=== PATIENT | female | born 1960 | race Caucasian/White ===

== ENCOUNTER 2017-09-24 21:56 | Emergency (ER) | payer MEDICAID ==
[~2017-09-24] VITALS: Ht 162.6 cm; Wt 81.6 kg
[2017-09-24 22:41] LABS: Basophils # (auto) 0.1 uL; Basophils % (auto) 1.3 % (0.0-2.0); Eosinophils # (auto) 0.2 uL; Eosinophils % (auto) 4.2 % (0.0-7.0); Hematocrit 30.7 % (36.0-46.0); Hemoglobin 10.1 g/dL (12.2-16.2); Lymphocytes # (auto) 1.4 uL; Lymphocytes % (auto) 25.3 % (10.0-50.0); Mean Corpuscular Hemoglobin 30.2 pg (28.0-32.0); Mean Corpuscular Hgb Conc. 32.9 g/dL (32.0-36.0); Mean Corpuscular Volume 91.6 fL (80.0-100.0); Monocytes # (auto) 0.6 uL; Neutrophils # (auto) 3.2 uL; Neutrophils % (auto) 59.2 % (37.0-80.0); Nucleated Red Blood Cells % 0.1 %; Platelet Count (auto) 313 10^3/uL (140-450); Red Blood Cells 3.36 10^6/uL (4.0-5.20); Red Cell Distribution Width 15.9 % (11.8-14.3); White Blood Cell 5.5 10^3/uL (4.4-10.8)
[2017-09-24 22:57] LABS: BUN/Creatinine Ratio 19.4; Calcium 8.2 mg/dL (8.5-10.1); Potassium 4.5 mmol/L (3.5-5.1)
[2017-09-24 23:00] LABS: Bilirubin, Total 0.1 mg/dL (0.2-1.0); Total Protein 7.8 g/dL (6.4-8.2)
[2017-09-25 01:59] LABS: Alcohol, Urine < 3.0 mg/dL (0-5); Amphetamine Screen, Urine NEGATIVE (NEGATIVE); Barbiturate Scree,Urine NEGATIVE (NEGATIVE); Benzodiazephine Screen, Urine NEGATIVE (NEGATIVE); Cannabinoid Screen, Urine POSITIVE (NEGATIVE); Cocaine Screen, Urine NEGATIVE (NEGATIVE); Opiate Scree,Urine NEGATIVE (NEGATIVE); Phencyclidine Screen, Urine NEGATIVE (NEGATIVE)
[2017-09-25 03:38] VITALS: BP 136/80
== END 2017-09-25 03:39 | disposition home or self-care (01) ==
LOC: EDBD 21:56 → ER 21:56
DX: G20 Parkinson's disease (principal); F12.10 Cannabis abuse, uncomplicated; M19.90 Unspecified osteoarthritis, unspecified site; M32.9 Systemic lupus erythematosus, unspecified; Z90.49 Acquired absence of other specified parts of digestive tract; Z90.710 Acquired absence of both cervix and uterus
CPT/HCPCS: 36415; 70450; 80053; 80307; 83880; 84484; 85025; 93005

== ENCOUNTER 2017-11-28 06:10 | Inpatient (IN) | payer OTHER, MEDICAID ==
[~2017-11-28] VITALS: Ht 162.6 cm; Wt 90.7 kg
[2017-11-28] MEDS ORDERED: LORazepam 2MG/ML-1ML VIAL IV ONE (07:00)
[2017-11-28] MEDS ORDERED: SODIUM CHLORIDE 0.9% 1,000 ML IV ONE ×2 (07:00→11:30)
[2017-11-28] MEDS ORDERED: ONDANSETRON HCL 4 MG/2 ML VIAL IV ONE (07:00)
[2017-11-28 07:16] LABS: INR 0.99 (0.9-1.15); Partial Thromboplastin Time 20.8 sec (23.78-33.04); Prothrombin Time 10.6 sec (9.27-12.13)
[2017-11-28 07:24] LABS: Basophils # (auto) 0 uL; Basophils % (auto) 0.9 % (0.0-2.0); Eosinophils # (auto) 0.2 uL; Eosinophils % (auto) 3.5 % (0.0-7.0); Hematocrit 36.4 % (36.0-46.0); Hemoglobin 11.8 g/dL (12.2-16.2); Lymphocytes # (auto) 1.2 uL; Lymphocytes % (auto) 23.1 % (10.0-50.0); Mean Corpuscular Hgb Conc. 32.4 g/dL (32.0-36.0); Mean Corpuscular Volume 92.8 fL (80.0-100.0); Monocytes # (auto) 0.5 uL; Monocytes % (auto) 10.1 % (0.0-12.0); Neutrophils # (auto) 3.2 uL; Neutrophils % (auto) 62.4 % (37.0-80.0); Nucleated Red Blood Cells % 0.1 %; Platelet Count (auto) 262 10^3/uL (140-450); Red Blood Cells 3.92 10^6/uL (4.0-5.20); Red Cell Distribution Width 18.9 % (11.8-14.3); White Blood Cell 5.1 10^3/uL (4.4-10.8)
[2017-11-28 07:27] LABS: Alanine Aminotransferase 21 U/L (13-56); Albumin 3.3 g/dL (3.4-5.0); Alkaline Phosphatase 122 U/L (45-117); Anion Gap 2 (5-15); Aspartate Aminotransferase 20 U/L (15-37); Bilirubin, Total 0.2 mg/dL (0.2-1.0); Blood Alcohol < 3.0 mg/dL (0-5); Blood Urea Nitrogen 28 mg/dL (7-18); Calcium 8.5 mg/dL (8.5-10.1); Carbon Dioxide 27 mmol/L (21-32); Chloride 112 mmol/L (98-107); GFR African American 74 mL/min; GFR Non-African American 61 mL/min; Glucose 115 mg/dL (74-106); Potassium 4.8 mmol/L (3.5-5.1); Sodium 141 mmol/L (136-145); Total Protein 8.1 g/dL (6.4-8.2)
[2017-11-28 07:45] LABS: Alcohol, Urine < 3.0 mg/dL (0-5); Amphetamine Screen, Urine NEGATIVE (NEGATIVE); Barbiturate Scree,Urine NEGATIVE (NEGATIVE); Benzodiazephine Screen, Urine NEGATIVE (NEGATIVE); Cannabinoid Screen, Urine NEGATIVE (NEGATIVE); Cocaine Screen, Urine NEGATIVE (NEGATIVE); Opiate Scree,Urine NEGATIVE (NEGATIVE); Phencyclidine Screen, Urine NEGATIVE (NEGATIVE); Urine Bacteria NONE SEEN /hpf (None Seen); Urine Blood Negative /uL (Negative); Urine WBC 2 /hpf (0 - 5)
[2017-11-28 08:16] LABS: Salicylate < 1.7 mg/dL (2.8-20.0)
[2017-11-28 08:17] LABS: Acetaminophen < 2.0 ug/mL (10-30)
[2017-11-28] MEDS ORDERED: SODIUM CHLORIDE 0.9% 1,000 ML IV SCH (11:19)
[2017-11-28] MEDS ORDERED: MORPHINE SULF INJ 2 MG/ML SYRINGE 1ML IV PRN (11:30)
[2017-11-28] MEDS ORDERED: NITROGLYCERIN 0.4 MG SL TAB SL PRN (11:30)
[2017-11-28] MEDS ORDERED: MORPHINE SULFATE 4 MG/ML SYR/VIAL IV PRN (11:30)
[2017-11-28] MEDS ORDERED: ACETAMINOPHEN 500 MG TAB PO PRN (11:30)
[2017-11-28] MEDS ORDERED: LORazepam 2MG/ML-1ML VIAL IV PRN (11:30)
[2017-11-28] MEDS ORDERED: LACTULOSE 20Gm/30ML SOLN PO PRN (11:30)
[2017-11-28] MEDS ORDERED: ENOXAPARIN SOD 40 MG/0.4 ML SYRINGE SC ONE (11:45)
[2017-11-28] MEDS ORDERED: PANTOPRAZOLE 40 MG TAB PO ONE (11:45)
[2017-11-28] MEDS: SODIUM CHLORIDE 0.9% 1,000 ML IV SCH ×2 (13:16→22:31)
[2017-11-28 14:12] LABS: Folate (Folic Acid) > 24.00 ng/mL (5.38-24)
[2017-11-28 22:00] VITALS: BP 123/91
[2017-11-28] MEDS ORDERED: CARBIDOPA W LEVODOPA 10/100mg TABLET PO SCH (22:00)
[2017-11-28] MEDS: LORazepam 0.5 MG TAB PO PRN (22:31)
[2017-11-28] MEDS: CARBIDOPA W LEVODOPA 10/100mg TABLET PO SCH (22:31)
[2017-11-28 23:02] VITALS: BP 123/91
[2017-11-28] MEDS ORDERED: BACL10TA PO (23:43)
[2017-11-28] MEDS ORDERED: GABA300C10 PO (23:43)
[2017-11-28] MEDS ORDERED: VALB80CA PO (23:45)
[2017-11-28] MEDS ORDERED: FLUO60TA7 PO (23:45)
[2017-11-29] VITALS (7 sets, daily range): BP systolic 113–147; BP diastolic 18–84
[2017-11-29] MEDS: HYDROcodone-ACET 5/325MG TAB PO PRN ×3 (00:14→18:59)
[2017-11-29] MEDS: TEMAZEPAM 15 MG CAP PO PRN ×2 (01:08→22:31)
[2017-11-29] MEDS: PROMETHAZINE HCL 25 MG/ML 1ML IV PRN ×3 (01:53→22:39)
[2017-11-29] MEDS: LORazepam 0.5 MG TAB PO PRN ×2 (06:05→20:46)
[2017-11-29 06:08] LABS: Basophils # (auto) 0 uL; Basophils % (auto) 1.2 % (0.0-2.0); Eosinophils # (auto) 0.2 uL; Eosinophils % (auto) 4.9 % (0.0-7.0); Hemoglobin 10.5 g/dL (12.2-16.2); Lymphocytes # (auto) 1.3 uL; Lymphocytes % (auto) 31.5 % (10.0-50.0); Mean Corpuscular Hemoglobin 30.6 pg (28.0-32.0); Mean Corpuscular Hgb Conc. 32.7 g/dL (32.0-36.0); Mean Corpuscular Volume 93.4 fL (80.0-100.0); Monocytes # (auto) 0.4 uL; Monocytes % (auto) 10.9 % (0.0-12.0); Neutrophils # (auto) 2.1 uL; Neutrophils % (auto) 51.5 % (37.0-80.0); Nucleated Red Blood Cells % 0.1 %; Platelet Count (auto) 212 10^3/uL (140-450); Red Blood Cells 3.42 10^6/uL (4.0-5.20); Red Cell Distribution Width 18.7 % (11.8-14.3); White Blood Cell 4.1 10^3/uL (4.4-10.8)
[2017-11-29 06:40] LABS: Albumin 2.5 g/dL (3.4-5.0); BUN/Creatinine Ratio 27.1; Bilirubin, Total 0.4 mg/dL (0.2-1.0); Calcium 8.1 mg/dL (8.5-10.1); Potassium 4.2 mmol/L (3.5-5.1); Total Protein 6.7 g/dL (6.4-8.2)
[2017-11-29] MEDS: SODIUM CHLORIDE 0.9% 1,000 ML IV SCH ×2 (08:55→17:39)
[2017-11-29] MEDS: PANTOPRAZOLE 40 MG TAB PO SCH (09:58)
[2017-11-29] MEDS: CARBIDOPA W LEVODOPA 10/100mg TABLET PO SCH ×2 (09:58→22:31)
[2017-11-29] MEDS: ENOXAPARIN SOD 40 MG/0.4 ML SYRINGE SC SCH (09:58)
[2017-11-29] MEDS: GABAPENTIN 300 MG CAP PO SCH (20:46)
[2017-11-29] MEDS: BACLOFEN 10 MG TAB PO PRN (22:44)
[2017-11-30] VITALS (7 sets, daily range): BP systolic 129–154; BP diastolic 70–94
[2017-11-30] MEDS: SODIUM CHLORIDE 0.9% 1,000 ML IV SCH ×3 (02:17→19:37)
[2017-11-30] MEDS: HYDROcodone-ACET 5/325MG TAB PO PRN ×3 (04:25→19:34)
[2017-11-30] MEDS: GABAPENTIN 300 MG CAP PO SCH ×3 (06:14→21:00)
[2017-11-30] MEDS: ENOXAPARIN SOD 40 MG/0.4 ML SYRINGE SC SCH (09:30)
[2017-11-30] MEDS: LORazepam 0.5 MG TAB PO PRN ×2 (09:30→17:55)
[2017-11-30] MEDS: CARBIDOPA W LEVODOPA 10/100mg TABLET PO SCH (09:30)
[2017-11-30] MEDS: PANTOPRAZOLE 40 MG TAB PO SCH (09:30)
[2017-11-30] MEDS ORDERED: FLUOXETINE PO SCH (10:00)
[2017-11-30] MEDS ORDERED: FLUoxetine HCL 10 MG CAP PO SCH (10:00)
[2017-11-30] MEDS: FLUoxetine HCL 10 MG CAP PO SCH (12:11)
[2017-11-30] MEDS ORDERED: CYANOCOBALAMIN (B-12) 1000 MCG/1 ML VIAL IM ONE (17:45)
[2017-11-30] MEDS: BACLOFEN 10 MG TAB PO PRN (21:00)
[2017-11-30] MEDS: TEMAZEPAM 15 MG CAP PO PRN (21:00)
[2017-11-30] MEDS ORDERED: LISINOPRIL 20 MG TAB PO SCH (22:00)
[2017-11-30] MEDS ORDERED: CARVEDILOL 3.125 MG TAB PO SCH (22:00)
[2017-12-01] MEDS: HYDROcodone-ACET 5/325MG TAB PO PRN ×2 (01:55→08:28)
[2017-12-01] MEDS: LORazepam 0.5 MG TAB PO PRN (02:51)
[2017-12-01] MEDS: SODIUM CHLORIDE 0.9% 1,000 ML IV SCH (05:39)
[2017-12-01] MEDS: GABAPENTIN 300 MG CAP PO SCH ×2 (05:39→14:00)
[2017-12-01 05:51] VITALS: BP 146/84
[2017-12-01] MEDS: PROMETHAZINE HCL 25 MG/ML 1ML IV PRN (08:29)
[2017-12-01 09:00] VITALS: BP_SYST 136; BP_SYST 155; BP_DIAS 86; BP_DIAS 89
[2017-12-01] MEDS: FLUoxetine HCL 10 MG CAP PO SCH (09:52)
[2017-12-01] MEDS: PANTOPRAZOLE 40 MG TAB PO SCH (09:52)
[2017-12-01] MEDS: CARBIDOPA W LEVODOPA 10/100mg TABLET PO SCH (09:53)
[2017-12-01] MEDS: ENOXAPARIN SOD 40 MG/0.4 ML SYRINGE SC SCH (09:54)
[2017-12-01] MEDS: BACLOFEN 10 MG TAB PO PRN (09:59)
[2017-12-01] MEDS ORDERED: CYANOCOBALAMIN 500 MCG TAB PO SCH (10:00)
[2017-12-01 13:00] VITALS: BP 136/86
[2017-12-01 14:05] VITALS: BP 136/86
== END 2017-12-01 16:05 | disposition home or self-care (01) | DRG 92 ==
LOC: EDBD 06:10 → ER 06:11 → TELE 06:12 → TELE-WESTW 22:00
PROVIDERS: ADMIT Internal Medicine; ATTEND Internal Medicine Pulmonary Disease
DX: G92 Toxic encephalopathy (principal); C90.00 Multiple myeloma not having achieved remission; F31.10 Bipolar disorder, current episode manic without psychotic features, unspecified; G25.9 Extrapyramidal and movement disorder, unspecified; E53.8 Deficiency of other specified B group vitamins; F12.90 Cannabis use, unspecified, uncomplicated; F31.9 Bipolar disorder, unspecified; G20 Parkinson's disease; G24.01 Drug induced subacute dyskinesia; F19.10 Other psychoactive substance abuse, uncomplicated; M19.90 Unspecified osteoarthritis, unspecified site; F11.10 Opioid abuse, uncomplicated; M79.7 Fibromyalgia; Z76.5 Malingerer [conscious simulation]; Z79.899 Other long term (current) drug therapy; Z82.0 Family history of epilepsy and other diseases of the nervous system; Z90.710 Acquired absence of both cervix and uterus; Z98.84 Bariatric surgery status; T50.905A Adverse effect of unspecified drugs, medicaments and biological substances, initial encounter
CPT/HCPCS: 36415; 70450; 71045; 80053; 80061; 80307; 80320; 80329; 81001; 82140; 82550; 82607; 82746; 84443; 84484; 85025; 85610; 85652; 85730; 87081; 95819; 96361; 96372; 96374; 96375; J2405

== ENCOUNTER 2018-01-28 20:21 | Inpatient (IN) | payer OTHER, MEDICAID ==
[~2018-01-28] VITALS: Ht 167.6 cm; Wt 88.2 kg
[~2018-01-28 20:21] MED LIST: BACL10TA PO; FLUO60TA7 PO; GABA300C10 PO; VALB80CA PO
[2018-01-28] MEDS ORDERED: SODIUM CHLORIDE 0.9% 1,000 ML IV ONE (21:15)
[2018-01-28 21:36] LABS: Basophils # (auto) 0 uL; Eosinophils # (auto) 0.2 uL; Eosinophils % (auto) 4.9 % (0.0-7.0); Hemoglobin 10.8 g/dL (12.2-16.2); Lymphocytes # (auto) 0.8 uL; Lymphocytes % (auto) 19.9 % (10.0-50.0); Mean Corpuscular Hemoglobin 31.5 pg (28.0-32.0); Mean Corpuscular Hgb Conc. 33.7 g/dL (32.0-36.0); Mean Corpuscular Volume 93.7 fL (80.0-100.0); Monocytes # (auto) 0.4 uL; Monocytes % (auto) 11.2 % (0.0-12.0); Neutrophils # (auto) 2.5 uL; Nucleated Red Blood Cells % 0.1 %; Platelet Count (auto) 252 10^3/uL (140-450); Red Blood Cells 3.41 10^6/uL (4.0-5.20); Red Cell Distribution Width 14.4 % (11.8-14.3)
[2018-01-28 21:49] LABS: Urine Bacteria NONE SEEN /hpf (None Seen); Urine Blood Negative /uL (Negative); Urine Specific Gravity 1.016 (1.001-1.035); Urine WBC <1 /hpf (0 - 5)
[2018-01-28 21:55] LABS: Alcohol, Urine < 3.0 mg/dL (0-5); Amphetamine Screen, Urine NEGATIVE (NEGATIVE); Barbiturate Scree,Urine NEGATIVE (NEGATIVE); Benzodiazephine Screen, Urine POSITIVE (NEGATIVE); Cannabinoid Screen, Urine NEGATIVE (NEGATIVE); Cocaine Screen, Urine NEGATIVE (NEGATIVE); Opiate Scree,Urine NEGATIVE (NEGATIVE); Phencyclidine Screen, Urine NEGATIVE (NEGATIVE)
[2018-01-28 21:56] LABS: Salicylate < 1.7 mg/dL (2.8-20.0)
[2018-01-28 21:57] LABS: Anion Gap 5 (5-15); Blood Urea Nitrogen 18 mg/dL (7-18); Calcium 7.7 mg/dL (8.5-10.1); Carbon Dioxide 27 mmol/L (21-32); Chloride 105 mmol/L (98-107); Glucose 87 mg/dL (74-106); Magnesium 2.1 mg/dL (1.6-2.6); Potassium 4.7 mmol/L (3.5-5.1); Sodium 137 mmol/L (136-145)
[2018-01-28 21:59] LABS: Alanine Aminotransferase 49 U/L (13-56); Aspartate Aminotransferase 171 U/L (15-37); Blood Alcohol < 3.0 mg/dL (0-5); GFR African American 73 mL/min; GFR Non-African American 61 mL/min
[2018-01-28 22:01] LABS: Acetaminophen < 2.0 ug/mL (10-30)
[2018-01-28 22:05] LABS: Alkaline Phosphatase 244 U/L (45-117); Bilirubin, Total 0.3 mg/dL (0.2-1.0); Total Protein 7.7 g/dL (6.4-8.2)
[2018-01-29] MEDS: SODIUM CHLORIDE 0.9% 1,000 ML IV SCH ×2 (03:51→23:45)
[2018-01-29 05:39] VITALS: BP 111/51
[2018-01-29] MEDS ORDERED: CARB25TA22 PO (06:25)
[2018-01-29] MEDS ORDERED: HYDRX10T PO (06:25)
[2018-01-29 09:00] VITALS: BP 117/56
[2018-01-29 13:00] VITALS: BP 139/69
[2018-01-29 17:00] VITALS: BP 135/70
[2018-01-29 20:00] VITALS: BP 128/71
[2018-01-29] MEDS: CARBIDOPA W LEVODOPA 25/100mg TABLET PO SCH (22:45)
[2018-01-29] MEDS: ONDANSETRON HCL 4 MG/2 ML VIAL IV PRN (22:53)
[2018-01-29] MEDS ORDERED: GABAPENTIN 100 MG CAP PO ONE (23:15)
[2018-01-29] MEDS ORDERED: TEMAZEPAM 15 MG CAP PO ONE (23:15)
[2018-01-30 06:10] VITALS: BP 103/62
[2018-01-30] MEDS: CARBIDOPA W LEVODOPA 25/100mg TABLET PO SCH ×3 (06:19→22:21)
[2018-01-30 08:00] VITALS: BP 133/67
[2018-01-30 12:00] VITALS: BP 148/83
[2018-01-30 12:56] LABS: Albumin 2.8 g/dL (3.4-5.0); Calcium 8.1 mg/dL (8.5-10.1); Potassium 4.3 mmol/L (3.5-5.1)
[2018-01-30 12:58] LABS: BUN/Creatinine Ratio 12.9
[2018-01-30 13:00] LABS: Bilirubin, Total 0.3 mg/dL (0.2-1.0); Total Protein 7.9 g/dL (6.4-8.2)
[2018-01-30] MEDS ORDERED: HYDROcodone-ACET 10/325MG TAB PO ONE (14:30)
[2018-01-30 16:00] VITALS: BP 144/65
[2018-01-30] MEDS: HYDROcodone-ACET 10/325MG TAB PO PRN (20:41)
[2018-01-30] MEDS: SODIUM CHLORIDE 0.9% 1,000 ML IV SCH (20:41)
[2018-01-30 21:55] VITALS: BP 139/49
[2018-01-30] MEDS: ONDANSETRON HCL 4 MG/2 ML VIAL IV PRN (22:27)
[2018-01-31] MEDS: HYDROcodone-ACET 10/325MG TAB PO PRN ×2 (03:07→07:36)
[2018-01-31 05:19] VITALS: BP 95/54
[2018-01-31] MEDS: CARBIDOPA W LEVODOPA 25/100mg TABLET PO SCH ×2 (05:35→14:00)
[2018-01-31] MEDS: ONDANSETRON HCL 4 MG/2 ML VIAL IV PRN (07:36)
[2018-01-31 09:00] VITALS: BP 151/75
[2018-01-31] MEDS ORDERED: CYANOCOBALAMIN 500 MCG TAB PO SCH (10:00)
[2018-01-31 13:00] VITALS: BP 145/71
[2018-01-31] MEDS: SODIUM CHLORIDE 0.9% 1,000 ML IV SCH (15:30)
== END 2018-01-31 17:24 | disposition home or self-care (01) | DRG 917 ==
LOC: EDBD 20:21 → ER 20:22 → TELE-EAST 20:23
PROVIDERS: ADMIT Nurse Practitioner Family; ATTEND Family Medicine
DX: T42.4X2A Poisoning by benzodiazepines, intentional self-harm, initial encounter (principal); G92 Toxic encephalopathy; F31.30 Bipolar disorder, current episode depressed, mild or moderate severity, unspecified; G24.01 Drug induced subacute dyskinesia; G20 Parkinson's disease; E83.51 Hypocalcemia; Y92.89 Other specified places as the place of occurrence of the external cause; F17.200 Nicotine dependence, unspecified, uncomplicated; K72.90 Hepatic failure, unspecified without coma; M79.7 Fibromyalgia; T42.8X2A Poisoning by antiparkinsonism drugs and other central muscle-tone depressants, intentional self-harm, initial encounter; T45.0X2A Poisoning by antiallergic and antiemetic drugs, intentional self-harm, initial encounter; Z82.0 Family history of epilepsy and other diseases of the nervous system; Z86.73 Personal history of transient ischemic attack (TIA), and cerebral infarction without residual deficits; Z90.710 Acquired absence of both cervix and uterus; Z98.84 Bariatric surgery status; M32.9 Systemic lupus erythematosus, unspecified; Z85.79 Personal history of other malignant neoplasms of lymphoid, hematopoietic and related tissues; Z88.0 Allergy status to penicillin; Z88.2 Allergy status to sulfonamides; F41.9 Anxiety disorder, unspecified; M19.90 Unspecified osteoarthritis, unspecified site; M54.9 Dorsalgia, unspecified
CPT/HCPCS: 36415; 36600; 51702; 70450; 80053; 80307; 80320; 80329; 81001; 82607; 82805; 82962; 83735; 84484; 85025; 93005; 96361; 96374; A6257; J2405